=== PATIENT | female | born 1935 ===

== ENCOUNTER 2023-09-15 10:58 | Outpatient (REF) | payer MEDICARE, OTHER, SELFPAY ==
[2023-09-15 11:39] LABS: Estimated Average Glucose 111 mg/dL; Glycohemoglobin A1C 5.5 % (4.5-6.2)
== END 2023-09-15 10:59 | disposition home or self-care (01) ==
LOC: LAB 10:58
PROVIDERS: Visit Provider Nurse Practitioner Adult Health
DX: R63.1 Polydipsia (principal); R35.89 Other polyuria
CPT/HCPCS: 36415; 83036